=== PATIENT | female | born 1970 | race Hispanic/Latino ===

== ENCOUNTER 2020-07-22 13:43 | Emergency (ER) | payer MEDICARE, OTHER ==
[~2020-07-22] VITALS: Ht 160 cm; Wt 88.5 kg
[~2020-07-22 13:43] MED LIST: CALCITRIOL0.25 MCG PO; CITALOPRAM HBR20 MG PO; CLOTRIMAZOLE-BE30 ML; FOLIC ACID1 MG PO; HYDRALAZINE HCL10 MG PO; KAYEXALATE453.6 GM; LASIX40 MG PO; LIPITOR20 MG; NIFEDIPINE ER30 M1; PHENYTOIN SODI100 MG; RENAGEL800 MG PO; RENVELA0.8 GM
[2020-07-22] MEDS ORDERED: SODIUM CHLORIDE 0.9% 1000ML 1,000 ML IV STA (13:50)
[2020-07-22 15:14] LABS: BASOPHILS % 0.8 % (0.0-1.0); EOSINOPHILS # (AUTO) 0.1 (0.0-0.4); EOSINOPHILS % 1.9 % (0.0-6.0); LYMPHOCYTES # (AUTO) 1.8 (1.0-3.2); LYMPHOCYTES % 34.9 % (18.0-39.1); MEAN CORPUSCULAR HEMOGLOBIN 31.8 pg (28-32); MEAN CORPUSCULAR HGB CONC 31.3 g/dL (31-35); MEAN CORPUSCULAR VOLUME 101.6 fL (81-99); MONOCYTES # (AUTO) 0.5 (0.2-0.8); MONOCYTES % 8.5 % (4.4-11.3); NEUTROPHILS # (AUTO) 2.8 (2.1-6.9); NEUTROPHILS % 53.5 % (38.7-80.0); PLATELET COUNT 142 x10e3/uL (140-360); RED BLOOD COUNT 1.92 x10e6/uL (3.6-5.1); RED CELL DISTRIBUTION WIDTH 15.2 % (11.7-14.4)
[2020-07-22 15:20] LABS: HEMATOCRIT 19.5 % (34.2-44.1); HEMOGLOBIN 6.1 g/dL (12.0-16.0)
[2020-07-22 15:27] LABS: INR 1.04; PROTHROMBIN TIME 14.2 seconds (11.9-14.5)
[2020-07-22] MEDS ORDERED: SODIUM CHLORIDE 0.9% 250ML 250 ML IV ONE (15:30)
[2020-07-22 15:34] LABS: ALBUMIN 3.1 g/dL (3.5-5.0); ANION GAP 16.5 mmol/L (8-16); CALCIUM 9.2 mg/dL (8.4-10.2); CREATININE, SERUM 6.35 mg/dL (0.57-1.11); POTASSIUM 4.5 mmol/L (3.5-5.1)
[2020-07-22 19:40] VITALS: BP 152/56
== END 2020-07-22 19:41 | disposition other institution (70) ==
LOC: ER 13:55
DX: I97.618 Postprocedural hemorrhage of a circulatory system organ or structure following other circulatory system procedure (principal); I12.0 Hypertensive chronic kidney disease with stage 5 chronic kidney disease or end stage renal disease; E11.22 Type 2 diabetes mellitus with diabetic chronic kidney disease; N18.6 End stage renal disease; Z99.2 Dependence on renal dialysis; R60.9 Edema, unspecified; E78.5 Hyperlipidemia, unspecified; F32.9 Major depressive disorder, single episode, unspecified; Z20.822 Contact with and (suspected) exposure to COVID-19
CPT/HCPCS: 36415; 74176; 80053; 85025; 85610; 86850; 86900; 86920; 93005; 93926; 99284; J7030; J7050; P9016; U0002